=== PATIENT | female | born 1975 | race Caucasian/White ===

== ENCOUNTER 2020-01-10 16:07 | Inpatient (IN) | payer OTHER ==
[~2020-01-10] VITALS: Ht 152.4 cm; Wt 161.9 kg
[2020-01-10] MEDS ORDERED: GABAPENTIN (16:19)
--- NOTE | 2020-01-10 16:19 | NUR ---
PT BIB BY [facility] FOR PNEUMONIA. PT CO OF SOB, COUGH, DIFFICULTY BREAHTING WITH ACIVITY FOR ABOUT A WEEK. WAS SENT FROM [place] FOR INSURANCE REASONS. PT IS 92% ON 3 LITERS. 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
[2020-01-10] MEDS ORDERED: ALBUTEROL/IPRATROPIUM 2.5MG/0.5MG, 3 ML ONE (16:47)
[2020-01-10] MEDS ORDERED: ALBUTEROL/IPRATROPIUM 2.5MG/0.5MG, 3 ML NPPB ONE (17:00)
--- NOTE | 2020-01-10 17:14 | NUR ---
PT RESTING IN [facility]. WATCHING TV. NO NEEDS AT THIS TIME
--- NOTE | 2020-01-10 18:44 | NUR ---
PT RESTING IN [facility]. AWAITING ROOM FOR ADM. NO DISTRESS. CUP OF WATER PROVIDED.
[2020-01-10] MEDS ORDERED: ACETAMINOPHEN 325 MG TABLET PO PRN (19:00)
[2020-01-10] MEDS ORDERED: DOCUSATE 100 MG CAPSULE PO PRN (19:00)
[2020-01-10] MEDS ORDERED: TEMAZEPAM 15 MG CAPSULE PO PRN (19:00)
[2020-01-10] MEDS ORDERED: GUAIFENESIN/DM 200-20MG, 10ML UDC PO PRN (19:00)
[2020-01-10] MEDS ORDERED: LIDODERM REMOVE PATCH NOTE XX PRN (20:00)
[2020-01-10] MEDS: ENOXAPARIN 40 MG/0.4 ML SQ SCH (20:49)
[2020-01-10] MEDS: LABETALOL 5MG/ML, 20ML IVPush PRN (20:51)
[2020-01-10] MEDS: LIDODERM 5% PATCH TD PRN ×2 (20:52→21:00)
[2020-01-10] MEDS: AMPICILLIN/SULBACTAM 3 GM in SODIUM CHLORIDE 0.9% 100 ML IV SCH (21:09)
[2020-01-10 21:21] VITALS: BP 175/121
[2020-01-11] MEDS ORDERED: ALBUTEROL SULFATE 2.5 MG/3 ML ONE (00:29)
[2020-01-11 00:37] VITALS: BP 141/87
[2020-01-11] MEDS ORDERED: ALBUTEROL SULFATE 2.5 MG/3 ML NPPB PRN (01:30)
[2020-01-11] MEDS: AMPICILLIN/SULBACTAM 3 GM in SODIUM CHLORIDE 0.9% 100 ML IV SCH ×3 (04:35→20:23)
[2020-01-11 05:56] LABS: ANION GAP 7 mmol/L (5-15); BASOPHILS % (AUTO) 0 % (0-1); CALCIUM 8.6 mg/dL (8.5-10.1); CHLORIDE 107 mmol/L (98-107); EOSINOPHILS % (AUTO) 0 % (1-7); LYMPHOCYTES # (AUTO) 0.59 x10^3/uL (1-3.4); LYMPHOCYTES % (AUTO) 16 % (22-44); MD NO; MEAN CORPUSCULAR HEMOGLOBIN 20.4 pg (27.0-34.8); MEAN CORPUSCULAR HGB CONC 30.9 g/dL (32.4-35.8); MEAN CORPUSCULAR VOLUME 66.1 fL (80-100); MEAN PLATELET VOLUME 8.2 fL (7.4-10.4); MONOCYTES # (AUTO) 0.33 x10^3/uL (0.2-0.8); MONOCYTES % (AUTO) 9 % (2-9); NEUTROPHILS # (AUTO) 2.67 x10^3/uL (1.8-6.8); NEUTROPHILS % (AUTO) 74 % (42-75); PLATELET COUNT 271 x10^3/uL (130-400); RED BLOOD COUNT 4.58 x10^6/uL (3.82-5.3); RED CELL DISTRIBUTION WIDTH 18.9 % (9.6-15.2)
[2020-01-11 05:57] LABS: CREATININE 0.52 mg/dL (0.55-1.02)
[2020-01-11 07:09] VITALS: BP 156/104
[2020-01-11] MEDS: LABETALOL 5MG/ML, 20ML IVPush PRN ×2 (08:22→15:57)
[2020-01-11 14:28] VITALS: BP 167/99
[2020-01-11] MEDS: AZITHROMYCIN 500 MG in SODIUM CHLORIDE 0.9% 250 ML IV SCH (15:01)
[2020-01-11 15:48] VITALS: BP 161/110
[2020-01-11 17:14] VITALS: BP 157/98
[2020-01-11 18:31] VITALS: BP 147/78
[2020-01-11] MEDS: ENOXAPARIN 40 MG/0.4 ML SQ SCH (20:23)
[2020-01-12 00:48] VITALS: BP 159/98
[2020-01-12] MEDS: AMPICILLIN/SULBACTAM 3 GM in SODIUM CHLORIDE 0.9% 100 ML IV SCH ×2 (05:08→13:05)
[2020-01-12 07:08] VITALS: BP 166/91
[2020-01-12] MEDS ORDERED: LISINOPRIL 10 MG TABLET PO SCH (10:30)
[2020-01-12] MEDS ORDERED: TRAZODONE 50MG TABLET PO PRN (10:30)
[2020-01-12] MEDS ORDERED: CHLORTHALIDONE 25 MG TABLET PO SCH (10:30)
[2020-01-12] MEDS ORDERED: CHLO25TA PO (14:19)
[2020-01-12] MEDS ORDERED: CLON-275 PO (14:19)
[2020-01-12] MEDS ORDERED: DOXY100C2 PO (14:19)
[2020-01-12] MEDS ORDERED: AMOX1TAB64 PO (14:19)
[2020-01-12] MEDS ORDERED: LISI-167 PO (14:19)
[2020-01-12] MEDS ORDERED: ALBU90AE INH ×2 (14:53→14:56)
[2020-01-12] MEDS: AZITHROMYCIN 500 MG in SODIUM CHLORIDE 0.9% 250 ML IV SCH (15:00)
[2020-01-12 15:04] VITALS: BP 158/101
== END 2020-01-12 17:00 | disposition home or self-care (01) | DRG 177 ==
LOC: ED 17:15 → EDIP 17:20 → ED 17:38 → 3N 19:40 → DCLOUNGE 01-12 16:54
PROVIDERS: ADMIT Internal Medicine Infectious Disease; ATTEND Internal Medicine Infectious Disease
DX: J15.6 Pneumonia due to other Gram-negative bacteria (principal); J96.01 Acute respiratory failure with hypoxia; Z68.44 Body mass index [BMI] 60.0-69.9, adult; E66.01 Morbid (severe) obesity due to excess calories; D50.9 Iron deficiency anemia, unspecified; F17.210 Nicotine dependence, cigarettes, uncomplicated; I11.9 Hypertensive heart disease without heart failure; Z80.6 Family history of leukemia; Z82.5 Family history of asthma and other chronic lower respiratory diseases; Z87.39 Personal history of other diseases of the musculoskeletal system and connective tissue; Z98.84 Bariatric surgery status; Z90.49 Acquired absence of other specified parts of digestive tract; Z88.8 Allergy status to other drugs, medicaments and biological substances; Z71.6 Tobacco abuse counseling; J15.9 Unspecified bacterial pneumonia
CPT/HCPCS: 36415; 80048; 85025; 93005; 93306; 94640; 99285; G0378; J0295; J0456; J1650; J7050; J7512

== ENCOUNTER 2020-02-25 09:44 | Outpatient (CLI) | payer OTHER ==
[~2020-02-25 09:44] MED LIST: ALBU90AE INH; AMOX1TAB64 PO; CHLO25TA PO; CLON-275 PO; DOXY100C2 PO; GABAPENTIN; LISI-167 PO
== END 2020-02-25 23:59 | disposition home or self-care (01) ==
LOC: WOUND 09:44
PROVIDERS: ATTEND Internal Medicine
DX: T81.89XD Other complications of procedures, not elsewhere classified, subsequent encounter (principal); I87.313 Chronic venous hypertension (idiopathic) with ulcer of bilateral lower extremity; L97.222 Non-pressure chronic ulcer of left calf with fat layer exposed; L97.212 Non-pressure chronic ulcer of right calf with fat layer exposed; I89.0 Lymphedema, not elsewhere classified; Y83.8 Other surgical procedures as the cause of abnormal reaction of the patient, or of later complication, without mention of misadventure at the time of the procedure
CPT/HCPCS: 97597; G0463

== ENCOUNTER → 2020-03-03 | Outpatient (CLI) | payer OTHER | END | disposition home or self-care (01) | LOC: WOUND 10:47 | PROVIDERS: ATTEND Internal Medicine | DX: T81.89XD Other complications of procedures, not elsewhere classified, subsequent encounter (principal); I87.312 Chronic venous hypertension (idiopathic) with ulcer of left lower extremity; L97.222 Non-pressure chronic ulcer of left calf with fat layer exposed; I87.331 Chronic venous hypertension (idiopathic) with ulcer and inflammation of right lower extremity; L97.212 Non-pressure chronic ulcer of right calf with fat layer exposed; I89.0 Lymphedema, not elsewhere classified; Y83.8 Other surgical procedures as the cause of abnormal reaction of the patient, or of later complication, without mention of misadventure at the time of the procedure | CPT/HCPCS: 97597 ==

== ENCOUNTER 2021-07-19 07:01 | Inpatient (IN) | payer OTHER ==
[~2021-07-19] VITALS: Ht 152.4 cm; Wt 169.0 kg
[~2021-07-19 07:01] MED LIST changes: +ASCO500T9 PO; +CARV3.1212 PO; +CARV6.2512 PO; +Cyanocobalamin PO; -DOXY100C2 PO; +DOXY100C5 PO; +FERR324T23 PO; +FURO40TA6 PO; +GABA300C PO; +LISI5TAB7 PO; +METO2.5T PO; +POTA10TA PO; +POTA20TA91 PO; +TORS20TA2 PO
[2021-07-19] MEDS ORDERED: SODIUM CHLORIDE FLUSH 10ML SYR IVF ONE (07:30)
[2021-07-19] MEDS ORDERED: FUROSEMIDE 40 MG/4 ML IV ONE (07:30)
--- NOTE | 2021-07-19 07:30 | NUR ---
PT WC'D TO ROOM 4 W/ C/O SOB WORSENED OVER THE LAST 2 DAYS. PT STATES SHE IS ON 2.5 L NC AND HAS HAD TO INCREASE IT TO 3L NC AT HOME. PT CURRENTLY ON 4L NC. PT STATES SHE HAS ALSO GAINED A LOT OF WATER WEIGHT OVER THE LAST FEW WEEKS PT DOES NOT KNOW HOW MUCH. PT RESTING ON GURNEY. SOB NOTED. KANDY OSBORNE AT BEDSIDE FOR PATRICIA.
[2021-07-19] MEDS ORDERED: IRON15TA3 PO (07:32)
[2021-07-19] MEDS ORDERED: FUROSEMIDE 40 MG/4 ML ONE (07:34)
[2021-07-19] MEDS ORDERED: NITROGLYCERIN OINT 2%, 1GM TP STA (07:35)
[2021-07-19] MEDS ORDERED: NITROGLYCERIN OINT 2%, 1GM TP ONE (07:35)
[2021-07-19 08:23] LABS: BASOPHILS % (AUTO) 1 % (0-1); EOSINOPHILS % (AUTO) 2 % (1-7); LYMPHOCYTES % (AUTO) 19 % (22-44); MEAN CORPUSCULAR HGB CONC 30.4 g/dL (32.4-35.8); MEAN PLATELET VOLUME 7.2 fL (7.4-10.4); MONOCYTES % (AUTO) 14 % (2-9); NEUTROPHILS % (AUTO) 64 % (42-75); PLATELET COUNT 217 x10^3/uL (130-400); RED BLOOD COUNT 4.53 x10^6/uL (3.82-5.3); RED CELL DISTRIBUTION WIDTH 19.2 % (9.6-15.2)
--- NOTE | 2021-07-19 08:24 | NUR ---
PT RESTING ON GURNEY. NADN. BARRERA.
[2021-07-19 08:31] LABS: ALBUMIN 3.2 g/dL (3.4-5.0); ANION GAP 7 mmol/L (5-15); CALCIUM 8.8 mg/dL (8.5-10.1); CHLORIDE 104 mmol/L (98-107)
[2021-07-19 08:36] LABS: CREATININE 0.53 mg/dL (0.55-1.02); TROPONIN I 0.021 ng/mL (0.000-0.045)
--- NOTE | 2021-07-19 08:48 | NUR ---
PT CHART REVIEWED AND PLACED FOR RECHECK.
--- NOTE | 2021-07-19 09:20 | NUR ---
PT RESTING ON GURNEY. NADN. BARRERA.
--- NOTE | 2021-07-19 10:13 | NUR ---
PT RESTING ON GURNEY. NADN. BARRERA.
--- NOTE | 2021-07-19 11:01 | NUR ---
TASK RN NOTE: PT SITTING UP WATCHING TELEVISION. NAD NOTED AT THIS TIME. RESPIRATIONS EVEN AND UNLABORED ON NC. SIDE RAILS UP, CALL LIGHT IN REACH. AWAITING ADMISSION BED ASSIGNMENT.
[2021-07-19] MEDS ORDERED: ENALAPRILAT 1.25 MG/ML, 2ML IVPush PRN (11:30)
[2021-07-19] MEDS ORDERED: KETOROLAC 30 MG/1 ML IV PRN (11:30)
[2021-07-19] MEDS ORDERED: BUTALB/APAP/CAFFEINE 50MG/325MG/40MG PO PRN (11:30)
[2021-07-19] MEDS ORDERED: ONDANSETRON ODT 4 MG PO PRN (11:30)
[2021-07-19] MEDS ORDERED: ENOXAPARIN 30 MG/0.3 ML SQ SCH (11:30)
[2021-07-19] MEDS ORDERED: hydrALAzine 20 MG/ML, 1ML IVPush PRN (11:30)
[2021-07-19] MEDS ORDERED: HYDROcodone/APAP 5/325 TABLET PO PRN (11:30)
[2021-07-19] MEDS ORDERED: GUAIFENESIN/DM 200-20MG, 10ML UDC PO PRN (11:30)
[2021-07-19] MEDS ORDERED: BACLOFEN 10 MG TABLET PO PRN (11:30)
[2021-07-19] MEDS ORDERED: ONDANSETRON 2MG/ML, 2ML IVPush PRN (11:30)
[2021-07-19] MEDS ORDERED: GABAPENTIN 300 MG CAPSULE PO PRN ×2 (11:30→19:30)
--- NOTE | 2021-07-19 11:36 | NUR ---
PER ERP DR. OSBORNE NO NEED TO DO INTERVENTIONS AT THIS TIME FOR LACTIC ACID 3.7
[2021-07-19] MEDS ORDERED: methylPREDNISolone SOD SUCC 125 MG/2 ML ONE (12:07)
[2021-07-19] MEDS ORDERED: SENNA/DOCUSATE TABLET ONE (12:08)
[2021-07-19] MEDS: methylPREDNISolone SOD SUCC 125 MG/2 ML IVPush SCH ×2 (12:20→20:30)
[2021-07-19] MEDS: SENNA/DOCUSATE TABLET PO SCH (12:20)
--- NOTE | 2021-07-19 12:25 | NUR ---
PT RESTING ON GURNEY. NADN. BARRERA.
[2021-07-19] MEDS ORDERED: ENOXAPARIN 40 MG/0.4 ML SQ SCH (12:30)
--- NOTE | 2021-07-19 12:58 | NUR ---
PT PROVIDED W/ DIET TRAY. PT RESTING ON [place]. NADN. OLIVEIRAS.
--- NOTE | 2021-07-19 14:01 | NUR ---
PT RESTING ON GURNEY. NADN. BARRERA.
--- NOTE | 2021-07-19 15:06 | NUR ---
PT RESTING ON GURNEY. NADN. BARRERA.
--- NOTE | 2021-07-19 16:02 | NUR ---
PT RESTING ON GURNEY. NADN. BARRERA.
--- NOTE | 2021-07-19 16:54 | NUR ---
PT RESTING ON GURNEY. NADN. BARRERA.
--- NOTE | 2021-07-19 17:33 | NUR ---
REPORT GIVEN TO JODEE JIN RN. ALL QUESTIONS ANSWERED. AWAITING PT TRANSPORT.
--- NOTE | 2021-07-19 17:58 | NUR ---
PT RESTING ON GURNEY. NADN. BARRERA.
--- NOTE | 2021-07-19 19:03 | NUR ---
REPORT GIVEN TO RODNEY ROBBINS. PT RESTING ON FLOR. NADN. BARRERA.
[2021-07-19 20:05] VITALS: BP 153/108
[2021-07-19] MEDS: FUROSEMIDE 40 MG/4 ML IV SCH (20:30)
[2021-07-19] MEDS: CARVEDILOL 12.5 MG TABLET PO SCH (20:30)
[2021-07-19] MEDS: MELATONIN 5 MG TABLET PO SCH (23:28)
[2021-07-19] MEDS: ENOXAPARIN 40 MG/0.4 ML SQ SCH (23:33)
[2021-07-20 00:14] VITALS: BP 134/86
[2021-07-20] MEDS: methylPREDNISolone SOD SUCC 125 MG/2 ML IVPush SCH ×4 (03:12→21:00)
[2021-07-20] MEDS: CARVEDILOL 12.5 MG TABLET PO SCH ×2 (05:33→18:05)
[2021-07-20 05:58] LABS: BASOPHILS % (AUTO) 0 % (0-1); EOSINOPHILS % (AUTO) 0 % (1-7); LYMPHOCYTES % (AUTO) 10 % (22-44); MEAN CORPUSCULAR HEMOGLOBIN 23.3 pg (27.0-34.8); MEAN CORPUSCULAR HGB CONC 31.2 g/dL (32.4-35.8); MEAN PLATELET VOLUME 7.7 fL (7.4-10.4); MONOCYTES % (AUTO) 5 % (2-9); NEUTROPHILS % (AUTO) 85 % (42-75); PLATELET COUNT 239 x10^3/uL (130-400); RED BLOOD COUNT 4.66 x10^6/uL (3.82-5.3); RED CELL DISTRIBUTION WIDTH 19.2 % (9.6-15.2)
[2021-07-20 06:06] LABS: CHLORIDE 99 mmol/L (98-107)
[2021-07-20 06:16] LABS: ALANINE AMINOTRANSFERASE 16 U/L (12-78); ALBUMIN 3.2 g/dL (3.4-5.0); ALKALINE PHOSPHATASE 63 U/L (45-117); ANION GAP 6 mmol/L (5-15); BILIRUBIN,TOTAL 0.9 mg/dL (0.2-1.0); CALCIUM 9.5 mg/dL (8.5-10.1); CREATININE 0.54 mg/dL (0.55-1.02); TOTAL PROTEIN 6.9 g/dL (6.4-8.2)
[2021-07-20 06:47] VITALS: BP 144/90
[2021-07-20] MEDS: IRON CARBONYL 15 MG PO SCH (09:00)
[2021-07-20] MEDS: SENNA/DOCUSATE TABLET PO SCH (09:00)
[2021-07-20] MEDS: METOLAZONE 2.5 MG TABLET PO SCH (10:14)
[2021-07-20] MEDS: POTASSIUM CHLORIDE 20 MEQ TAB.ER.PRT PO SCH (10:14)
[2021-07-20] MEDS: FUROSEMIDE 40 MG/4 ML IV SCH ×2 (10:14→18:05)
[2021-07-20] MEDS: TORSEMIDE 20 MG TABLET PO SCH (10:14)
[2021-07-20 12:02] VITALS: BP 132/86
[2021-07-20] MEDS: ENOXAPARIN 40 MG/0.4 ML SQ SCH (14:54)
[2021-07-20 19:19] VITALS: BP 157/95
[2021-07-20] MEDS: MELATONIN 5 MG TABLET PO SCH (21:00)
[2021-07-21 00:14] VITALS: BP 131/78
[2021-07-21] MEDS: ENOXAPARIN 40 MG/0.4 ML SQ SCH ×2 (00:14→12:30)
[2021-07-21] MEDS: methylPREDNISolone SOD SUCC 125 MG/2 ML IVPush SCH ×3 (04:32→15:20)
[2021-07-21 05:43] LABS: BASOPHILS % (AUTO) 0 % (0-1); EOSINOPHILS % (AUTO) 0 % (1-7); LYMPHOCYTES % (AUTO) 6 % (22-44); MEAN CORPUSCULAR HEMOGLOBIN 23.5 pg (27.0-34.8); MEAN CORPUSCULAR HGB CONC 31.4 g/dL (32.4-35.8); MONOCYTES % (AUTO) 10 % (2-9); NEUTROPHILS % (AUTO) 84 % (42-75); PLATELET COUNT 294 x10^3/uL (130-400); RED BLOOD COUNT 4.73 x10^6/uL (3.82-5.3); RED CELL DISTRIBUTION WIDTH 19.5 % (9.6-15.2)
[2021-07-21 05:55] LABS: ALBUMIN 3.3 g/dL (3.4-5.0); ANION GAP 6 mmol/L (5-15); CALCIUM 9.4 mg/dL (8.5-10.1); CHLORIDE 95 mmol/L (98-107); CREATININE 0.69 mg/dL (0.55-1.02)
[2021-07-21] MEDS: CARVEDILOL 12.5 MG TABLET PO SCH (06:26)
[2021-07-21] MEDS: FUROSEMIDE 40 MG/4 ML IV SCH (06:38)
[2021-07-21] MEDS: METOLAZONE 2.5 MG TABLET PO SCH (06:38)
[2021-07-21] MEDS: SENNA/DOCUSATE TABLET PO SCH (08:23)
[2021-07-21] MEDS: POTASSIUM CHLORIDE 20 MEQ TAB.ER.PRT PO SCH (08:29)
[2021-07-21] MEDS: IRON CARBONYL 15 MG PO SCH (08:29)
[2021-07-21] MEDS: TORSEMIDE 20 MG TABLET PO SCH (08:29)
[2021-07-21 08:30] VITALS: BP 136/90
[2021-07-21] MEDS ORDERED: FURO-93 PO (08:48)
== END 2021-07-21 17:14 | disposition home or self-care (01) | DRG 291 ==
LOC: ED 07:36 → EDIP 11:25 → 5SO 20:19
PROVIDERS: ADMIT Family Medicine; ATTEND Family Medicine
DX: I11.0 Hypertensive heart disease with heart failure (principal); I50.21 Acute systolic (congestive) heart failure; E87.2 Acidosis; Z68.45 Body mass index [BMI] 70 or greater, adult; J98.11 Atelectasis; I50.1 Left ventricular failure, unspecified; E78.5 Hyperlipidemia, unspecified; I27.20 Pulmonary hypertension, unspecified; Z20.822 Contact with and (suspected) exposure to COVID-19; E66.01 Morbid (severe) obesity due to excess calories; E11.40 Type 2 diabetes mellitus with diabetic neuropathy, unspecified; D50.9 Iron deficiency anemia, unspecified; R09.02 Hypoxemia; Z79.899 Other long term (current) drug therapy
CPT/HCPCS: 36415; 96374; 99285; C8929; 71045; 80048; 80053; 80069; 82040; 83605; 83735; 83880; 84484; 85025; 87040; 93005; G0378; J1650; J1940; Q9957; U0005; J2930; U0003